=== PATIENT | female | born 1975 | race Caucasian/White ===

== ENCOUNTER 2019-11-06 20:24 | Emergency (ER) | payer OTHER ==
[~2019-11-06] VITALS: Ht 144.8 cm; Wt 72.6 kg
[~2019-11-06 20:24] MED LIST: ALBUTEROL2.5 MG/31; ALLERGEN EAR DR15 M1; CIPROFLOXACIN500 M1; FLEXERIL PO; HYDROCODONE-AP1 EAC6 PO; MEDROLDOSEPACK; NORCO 5-325 TA1 EACH PO; ONDANSETRON HCL4 M2 PO; PRISTIQ50 MG; TESSALON200 MG PO; XANAX 0.5 MG0.5 M1
[2019-11-06] MEDS ORDERED: MOBIC7.5 MG PO (23:10)
[2019-11-06] MEDS ORDERED: FLEXERIL PO (23:10)
[2019-11-06 23:18] VITALS: BP 102/60
== END 2019-11-06 23:18 | disposition home or self-care (01) ==
LOC: M.ERS 20:24
DX: S83.8X2A Sprain of other specified parts of left knee, initial encounter (principal); S39.012A Strain of muscle, fascia and tendon of lower back, initial encounter; S79.812A Other specified injuries of left hip, initial encounter; F17.210 Nicotine dependence, cigarettes, uncomplicated; Z88.1 Allergy status to other antibiotic agents; Z88.8 Allergy status to other drugs, medicaments and biological substances; W10.8XXA Fall (on) (from) other stairs and steps, initial encounter; Y93.89 Activity, other specified; Y92.89 Other specified places as the place of occurrence of the external cause; Y99.8 Other external cause status